=== PATIENT | female | born 2000 | race Caucasian/White ===

== ENCOUNTER 2025-05-11 10:01 | Emergency (ER) | payer BC, SELFPAY ==
[2025-05-11 10:10] VITALS: BP 121/87
--- NOTE | 2025-05-11 12:18 | ED.GENMED ---
History of Present Illness
General
Chief Complaint: DVT/Possible Blood Clot
Source: patient
Time Seen by Provider: 05/11/25 10:47
History of Present Illness
History of Present Illness:
24-year-old female with no significant past medical history presents to the emergency department for evaluation of bilateral lower extremity pain, initially pain was more on the right-hand side, started at nighttime described to be a cramping
sensation and has gradually worsened over the last couple of days. Patient states it feels like a tightening sensation in the mid gastrocnemius, does not radiate and worse when ambulating. Denies any history of similar. She denies any oral
contraceptive use, recent travel personal or family history of DVT. She does admit to using a nicotine vape.
Past History
Past History
ED Past Medical History: None
ED Past Surgical History: None
Social History
Tobacco: Vaping
Alcohol: None
Drug: None
Personal: Single
Living: with family
Review of Systems
Review of Systems
All Other Systems: ROS reviewed and negative except as documented in HPI and ROS
Phy Exam
Physical Exam
Physical Exam:
GENERAL: Alert , in no apparent distress
EYE: conjunctiva clear
Head: Normocephalic atraumatic
NECK: Supple,
ENT: mmm.
LUNGS: no acute respiratory distress
NEUROLOGICAL: Alert and oriented
SKIN: Warm and dry, skin intact. Warm and well-perfused, no pallor or cyanosis
MUSCULOSKELETAL: well perfused. Easily palpable pedal and tibial pulses bilaterally. Cap refill less than 2 seconds. Sensation grossly intact to light touch. Patient able to range of motion bilateral lower extremities without difficulty
PSYCH: Normal and appropriate interaction.
Scores
Heart Failure Risk
Heart Failure Risk Score: Not Applicable
Heart Score for Chest Pain Patients
STEMI patient?: Not applicable
Withdrawal Assessment of Alcohol
Withdrawal Assessment Completed?: Not applicable
Course
Orders/Labs/Results
Orders:
Orders
05/11/25 10:12
Peripheral Venous Lwr Ext Bilat US [US Periph Venous LOWER Ext [facility]] Urgent
Comment:
Reason For Exam: calf pain, warmth
Vital Signs
Initial and Last Documented VS:
Initial Vital Signs
Temp Pulse Resp BP Pulse Ox
98.3 F 76 16 121/87 100
05/11/25 10:10 05/11/25 10:10 05/11/25 10:10 05/11/25 10:10 05/11/25 10:10
Last Documented Vital Signs
Temp Pulse Resp BP Pulse Ox
98.3 F 76 16 121/87 100
05/11/25 10:10 05/11/25 10:10 05/11/25 10:10 05/11/25 10:10 05/11/25 12:19
MDM/Problems Addressed
Differential Diagnosis Includes:
DVT
Muscle strain
Muscle cramping
No symptoms or exam findings to suggest arterial complication
MDM/Problems Addressed:
24-year-old female presenting to the ER for evaluation of bilateral lower extremity discomfort, right worse than left. Patient concern for possible DVT. Sent by urgent care to rule this out. Ultrasound ordered. Disposition pending
*Radiology
Radiology exam reviewed: radiology read reviewed (Negative for DVT)
*Pulse Oximetry
SaO2: 100
Oxygen Mode of Delivery: Room air
Patient hypoxic: no
*Critical Care Note
Total Time (30-74mins, 75-104mins- exclusive of procedures): Not Applicable
Patient Management
Escalation/DeEscalation of care consider admission/obs:
Ultrasound negative for any acute pathologies. Ultimately I do suspect nocturnal muscle cramp as cause for patient's symptoms. Gentle stretching and massage, NSAIDs/Tylenol as needed for pain. Stable for discharge home.
ED Attending Note
-
Portions of this chart may have been created with voice recognition software.� Occasional wrong word or��sound alike� substitutions may have occurred due to the inherent limitations of voice recognition software.
Discharge Plan
Departure
Patient Disposition: Home (Routine Discharge)
Date of Disposition: 05/11/25
Time of Disposition: 12:19
Patient with high blood pressure during this ER visit?: No
Discharge Problem:
Bilateral lower extremity pain
Instructions: Nocturnal (Nighttime) Leg Cramps (DC)
Referrals:
Danii Perez PA-C [Family Provider, Internal Medicine]
Interventions
Interventions:
*Risk Screen - Suicide Last Done: 05/11/25 10:10
*General Assessment Last Done: 05/11/25 10:10
*Neglect/Abuse Screening Last Done: 05/11/25 11:32
*ED- Fall Risk Assessment Last Done: 05/11/25 11:31
*Nursing Disposition Last Done: 05/11/25 12:22
ED- Cardiac Assessment Last Done: 05/11/25 11:29
ED- Pulmonary Assessment Last Done: 05/11/25 11:29
ED-Peripheral Vascular Assessment Last Done: 05/11/25 11:29
ED-Skin Assessment Last Done: 05/11/25 11:29
Discharge Date and Time
Discharge Date/Time: 05/11/25 12:22
Print Language: GEORGIAN
== END 2025-05-11 12:22 | disposition home or self-care (01) ==
LOC: EMR 10:01
PROVIDERS: EMERGENCY PHYSICIAN Emergency Medicine; FAMILY PHYSICIAN Physician Assistant Medical
DX: M79.662 Pain in left lower leg (principal); M79.661 Pain in right lower leg; F17.290 Nicotine dependence, other tobacco product, uncomplicated
CPT/HCPCS: 99284; 93970